=== PATIENT | female | born 1960 | race Caucasian/White ===

== ENCOUNTER 2017-11-04 09:00 | Emergency (ER) | payer OTHER ==
[~2017-11-04] VITALS: Ht 160 cm; Wt 63.5 kg
[2017-11-04 10:16] VITALS: BP 130/82
[2017-11-04] MEDS ORDERED: ACETAMINOPHEN325 M1 PO (10:34)
== END 2017-11-04 09:50 | disposition home or self-care (01) ==
LOC: FSED 09:00
DX: J00 Acute nasopharyngitis [common cold] (principal)
CPT/HCPCS: 83518; 87400; 99282